=== PATIENT | male | born 1950 | race African-American/Black ===

== ENCOUNTER 2023-07-14 22:25 | Emergency (ER) | payer SELFPAY ==
[~2023-07-14] VITALS: Ht 167.6 cm; Wt 53.0 kg
[2023-07-14 22:35] VITALS: TEMP 98.4; O2SAT 96
[2023-07-14] MEDS: ACETAMINOPHEN 325MG TABLET PO ONE (23:03)
[2023-07-14] MEDS: MORPHINE SULFATE 4 MG/ML INJ (FOR IV/IM USE) IM ONE (23:03)
[2023-07-15] MEDS ORDERED: TRAM50TA3 MT (01:54)
[2023-07-15] MEDS: HYDROCODONE/ACETAMINOPHEN 5/325MG TABLET PO ONE (02:12)
[2023-07-15 02:13] VITALS: BP 124/65; PULSE 83; RESP 18
== END 2023-07-15 03:08 | disposition home or self-care (01) ==
LOC: ER 22:25
DX: S42.202A Unspecified fracture of upper end of left humerus, initial encounter for closed fracture (principal); J44.9 Chronic obstructive pulmonary disease, unspecified; E11.9 Type 2 diabetes mellitus without complications; I10 Essential (primary) hypertension; Z86.73 Personal history of transient ischemic attack (TIA), and cerebral infarction without residual deficits; W18.39XA Other fall on same level, initial encounter; Y93.89 Activity, other specified; Y92.89 Other specified places as the place of occurrence of the external cause; Y99.8 Other external cause status
CPT/HCPCS: 71101; 73030; 73060; 96372; 99284; J2270; Z7610